=== PATIENT | female | born 1965 | race Caucasian/White ===

== ENCOUNTER 2024-02-27 09:44 | Inpatient (IN) | payer OTHER ==
[~2024-02-27] VITALS: Ht 165.1 cm; Wt 109.8 kg
[~2024-02-27 09:44] MED LIST: NO HOME MEDS; RAMI5CAP71 PO
[2024-02-27 10:12] LABS: BASOPHILS # (AUTO) 0.1 X10'3 (0-0.2); BASOPHILS % (AUTO) 0.5 % (0-1); EOSINOPHILS # (AUTO) 0.1 X10'3 (0-0.9); EOSINOPHILS % (AUTO) 0.3 % (0-6); HEMATOCRIT 32.3 % (35.0-45.0); HEMOGLOBIN 10.1 g/dl (12.0-16.0); LYMPHOCYTES # (AUTO) 3.6 X10'3 (1.1-4.8); LYMPHOCYTES % (AUTO) 18.2 % (21-51); MEAN CORPUSCULAR HEMOGLOBIN 28.5 PG (27.0-31.0); MEAN CORPUSCULAR HGB CONC 31.3 g/dL (33.0-36.5); MEAN CORPUSCULAR VOLUME 91.2 FL (78-98); MEAN PLATELET VOLUME 8.3 FL (7.4-10.4); MONOCYTES # (AUTO) 7.3 X10'3 (0-0.9); MONOCYTES % (AUTO) 36.8 % (2-12); NEUTROPHILS # (AUTO) 8.8 X10'3 (1.8-7.7); NEUTROPHILS % (AUTO) 44.2 % (42-75); PLATELET COUNT 305 X10'3 (140-440); RED BLOOD COUNT 3.54 X10'6 (4.20-5.60); RED CELL DISTRIBUTION WIDTH 21.9 % (11.5-14.5); WHITE BLOOD COUNT 19.9 X10'3 (4.5-11.0)
[2024-02-27 10:30] LABS: TOTAL CELLS COUNTED 100
[2024-02-27 10:31] LABS: ANISOCYTOSIS 3+; PLATELET ESTIMATE NORMAL
[2024-02-27 10:32] LABS: LARGE PLATELETS FEW
[2024-02-27 10:33] LABS: STOMATOCYTES 1+
[2024-02-27] MEDS ORDERED: METO-384 PO (10:34)
[2024-02-27] MEDS ORDERED: ALLO100T PO (10:34)
[2024-02-27] MEDS ORDERED: LISI20TA28 PO (10:34)
[2024-02-27] MEDS ORDERED: ATOR10TA70 PO (10:34)
[2024-02-27] MEDS ORDERED: SYN0.088T PO (10:34)
[2024-02-27] MEDS ORDERED: HYDR12.55 PO (10:34)
[2024-02-27] MEDS: nitroGLYCERIN 1gm ointment UD TP ONE (10:52)
[2024-02-27] MEDS: furosemide 40mg/4ml inj IV ONE (10:52)
[2024-02-27 10:53] LABS: APTT 29 SECONDS (22-32); INR 1.2 INR; PROTHROMBIN TIME 12.2 SECONDS (9.0-12.0)
[2024-02-27 11:10] LABS: ALANINE AMINOTRANSFERASE 12 U/L (12-78); ALBUMIN 3.3 G/DL (3.4-5.0); ALBUMIN/GLOBULIN RATIO 0.6 (1.1-1.5); ALKALINE PHOSPHATASE 97 IU/L (46-116); ANION GAP 11 (8-16); ASPARTATE AMINO TRANSFERASE 12 U/L (10-37); BILIRUBIN,TOTAL 1.3 MG/DL (0.1-1.0); BLOOD UREA NITROGEN 15 MG/DL (7-18); BUN/CREATININE RATIO 16.9 (10.0-20.0); CALCIUM 9.7 MG/DL (8.5-10.1); CHLORIDE 99 MMOL/L (99-107); CREATININE 0.89 MG/DL (0.40-0.90); GLUCOSE 141 MG/DL (70-104); POTASSIUM 3.4 MMOL/L (3.5-5.1); SODIUM 139 MMOL/L (135-145); TOTAL CARBON DIOXIDE 29.5 MMOL/L (24-32); TOTAL PROTEIN 8.7 G/DL (6.4-8.2); eCRCL 62 ML/MIN; eGFR 65 ML/MIN
[2024-02-27 11:32] LABS: PRO BRAIN NATRIURETIC PEPTIDE 876 PG/ML (0-125)
[2024-02-27 11:53] LABS: D-DIMER 3.89 MG/L FEU (0-0.50)
[2024-02-27] MEDS ORDERED: normal saline 1000ml 1,000 ML IV SCH (13:00)
[2024-02-27] MEDS ORDERED: iohexol 350MG/ML 100ml bottle IV ONE (13:07)
[2024-02-27] MEDS: magnesium sulf-water 4G/100mL 100 ML IV ONE (14:25)
[2024-02-27] MEDS ORDERED: ondansetron/PF 4mg/2ml inj IV PRN (15:20)
[2024-02-27] MEDS ORDERED: ipratropium/albuterol 3ml nebule NEB PRN (15:20)
[2024-02-27] MEDS ORDERED: morphine 2 MG/ML inj. syringe IV PRN ×2 (15:20)
[2024-02-27] MEDS ORDERED: bisacodyl 10mg suppository rectal RC PRN (15:20)
[2024-02-27] MEDS ORDERED: HYDROcodone/acetaminophen 10/325mg tab PO PRN (15:20)
[2024-02-27] MEDS ORDERED: magnesium Cl slow-release 64mg tablet PO PRN (15:20)
[2024-02-27] MEDS ORDERED: ondansetron 4mg rapidly disintigrating tab PO PRN (15:20)
[2024-02-27] MEDS ORDERED: potassium Cl 20 mEq SR tablet PO PRN ×2 (15:20)
[2024-02-27] MEDS ORDERED: diphenhydrAMINE 50 mg/ml inj IV PRN (15:20)
[2024-02-27] MEDS ORDERED: HYDROcodone/acetaminophen 5mg/325mg tablet PO PRN (15:20)
[2024-02-27] MEDS ORDERED: mag hydrox/Alum hydrox/simeth 30ml oral suspension PO PRN (15:20)
[2024-02-27] MEDS ORDERED: magnesium hydroxide 30ml (MOM) UD suspension PO PRN (15:20)
[2024-02-27] MEDS: metoprolol tartrate 25mg tablet PO SCH (15:46)
[2024-02-27] MEDS: normal saline 1000ml 1,000 ML IV SCH (15:46)
[2024-02-27 16:14] VITALS: PULSE 108; RESP 32; O2SAT 95
[2024-02-27] MEDS ORDERED: LEVO50CA4 PO (16:36)
[2024-02-27 16:38] LABS: APTT 30 SECONDS (22-32); INR 1.2 INR; PROTHROMBIN TIME 12.3 SECONDS (9.0-12.0)
[2024-02-27 16:39] LABS: HEMOGLOBIN A1C 5.4 % (4.5-6.2)
[2024-02-27 16:50] LABS: C-REACTIVE PROTEIN 14.82 MG/DL (0.0-0.5); CREATINE KINASE 13 U/L (26-192); ETHANOL < 10 MG/DL (<10); LIPASE 37 U/L (16-77); THYROID STIMULATING HORMONE 1.74 ulU/ml (0.34-4.50)
[2024-02-27 16:55] LABS: OSMOLALITY 293 MOSM/K (280-300)
[2024-02-27] MEDS: CefTRIAXone 2gm/D5W 50ml BAG 50 ML IV SCH (17:06)
[2024-02-27] MEDS: potassium bicarbonate/cit acid 25mEq tablet.effervescent PO ONE (17:13)
[2024-02-27 17:18] LABS: HIV ANTIBODY 1&2 RAPID NON-REACTIVE (Neg)
[2024-02-27] MEDS: VANCOMYCIN/WATER FOR INJ (PEG) 1.25GM/250 ML IVPB IV SCH (17:38)
[2024-02-27 17:53] LABS: BILIRUBIN,URINE NEGATIVE (Neg); CLARITY,URINE CLEAR (Clear); COLOR,URINE YELLOW (Yellow); GLUCOSE, URINE NEGATIVE (Neg); KETONES,URINE NEGATIVE (Neg); LEUKOCYTE ESTERASE ,URINE NEGATIVE (Neg); NITRITES, URINE NEGATIVE (Neg); OCCULT BLOOD,URINE NEGATIVE (Neg); PH,URINE 5.5 (4.8-8.0); PROTEIN,URINE NEGATIVE (Neg); UROBILINOGEN,URINE 0.2 E.U/dL (0.2-1.0)
[2024-02-27 17:55] LABS: UA COLLECTION TYPE VOIDED
[2024-02-27 19:30] LABS: URINE AMPHETAMINE SCREEN NEGATIVE (Neg); URINE BARBITUATE SCREEN NEGATIVE (Neg); URINE BENZODIAZEPINES SCREEN NEGATIVE (Neg); URINE CANNABINOID SCREEN NEGATIVE (Neg); URINE COCAINE SCREEN NEGATIVE (Neg); URINE METHADONE SCREEN NEGATIVE (Neg); URINE OPIATE SCREEN NEGATIVE (Neg); URINE PHENCYCLIDINE SCREEN NEGATIVE (Neg)
[2024-02-27] MEDS: docusate sod 100mg capsule PO SCH (20:00)
[2024-02-27] MEDS ORDERED: vancomycin/NS 1 GM ADD-VANTAGE 250 ML IV SCH (20:00)
[2024-02-27] MEDS: K and/or MAG REPLACEMENT MC SCH (20:00)
[2024-02-27 20:08] VITALS: PULSE 93; RESP 23; O2SAT 94
[2024-02-27 21:40] VITALS: BP 141/76; PULSE 102; RESP 21; TEMP 98.9; O2SAT 96
[2024-02-27 21:55] VITALS: O2SAT 97
[2024-02-28] VITALS (19 sets, daily range): BP systolic 119–142; BP diastolic 60–80; PULSE 89–120; RESP 2–43; TEMP 96.8–98.7; O2SAT 90–97
[2024-02-28] MEDS: temazepam 15mg capsule PO PRN (01:02)
[2024-02-28 06:07] LABS: BASOPHILS # (AUTO) 0.1 X10'3 (0-0.2); BASOPHILS % (AUTO) 0.6 % (0-1); EOSINOPHILS # (AUTO) 0.1 X10'3 (0-0.9); EOSINOPHILS % (AUTO) 0.4 % (0-6); HEMATOCRIT 27.7 % (35.0-45.0); HEMOGLOBIN 8.7 g/dl (12.0-16.0); LYMPHOCYTES # (AUTO) 3.6 X10'3 (1.1-4.8); LYMPHOCYTES % (AUTO) 17.3 % (21-51); MEAN CORPUSCULAR HEMOGLOBIN 28.8 PG (27.0-31.0); MEAN CORPUSCULAR HGB CONC 31.4 g/dL (33.0-36.5); MEAN CORPUSCULAR VOLUME 91.6 FL (78-98); MEAN PLATELET VOLUME 7.8 FL (7.4-10.4); MONOCYTES # (AUTO) 9.5 X10'3 (0-0.9); MONOCYTES % (AUTO) 45.4 % (2-12); NEUTROPHILS # (AUTO) 7.6 X10'3 (1.8-7.7); NEUTROPHILS % (AUTO) 36.3 % (42-75); PLATELET COUNT 248 X10'3 (140-440); RED BLOOD COUNT 3.03 X10'6 (4.20-5.60); RED CELL DISTRIBUTION WIDTH 21.9 % (11.5-14.5)
[2024-02-28 06:32] LABS: ALBUMIN 2.8 G/DL (3.4-5.0); ALBUMIN/GLOBULIN RATIO 0.6 (1.1-1.5); ALKALINE PHOSPHATASE 90 IU/L (46-116); ANION GAP 8 (8-16); ASPARTATE AMINO TRANSFERASE 12 U/L (10-37); BILIRUBIN,TOTAL 0.9 MG/DL (0.1-1.0); BLOOD UREA NITROGEN 16 MG/DL (7-18); BUN/CREATININE RATIO 18.6 (10.0-20.0); CALCIUM 9.2 MG/DL (8.5-10.1); CHLORIDE 100 MMOL/L (99-107); CHOL/HDL RATIO 2.9 (0.00-4.99); CHOLESTEROL 89 MG/DL (0-200); CREATININE 0.86 MG/DL (0.40-0.90); GLUCOSE 111 MG/DL (70-104); HDL CHOLESTEROL 31 MG/DL (35-60); LDL CHOLESTEROL 44 MG/DL (50-100); MAGNESIUM 2.1 MG/DL (1.5-2.4); POTASSIUM 3.6 MMOL/L (3.5-5.1); SODIUM 141 MMOL/L (135-145); TOTAL CARBON DIOXIDE 32.6 MMOL/L (24-32); TOTAL PROTEIN 7.8 G/DL (6.4-8.2); TRIGLYCERIDES 70 MG/DL (20-135); eCRCL 64 ML/MIN; eGFR 68 ML/MIN
[2024-02-28 06:59] LABS: ALANINE AMINOTRANSFERASE 12 U/L (12-78)
[2024-02-28 07:11] LABS: GIANT PLATELET FEW; PLATELET ESTIMATE NORMAL; TOTAL CELLS COUNTED 100
[2024-02-28 07:12] LABS: ANISOCYTOSIS 3+
[2024-02-28] MEDS: ipratropium/albuterol 3ml nebule NEB SCH (08:40)
[2024-02-28] MEDS: pantoprazole 40mg Tablet.DR PO SCH (08:50)
[2024-02-28] MEDS: furosemide 40mg/4ml inj IV SCH (10:56)
[2024-02-28] MEDS ORDERED: LORazepam 1 MG tablet PO PRN (12:00)
[2024-02-28] MEDS ORDERED: LORazepam 2 mg/ml vial IV PRN (12:00)
[2024-02-28] MEDS: CefTRIAXone 2gm/D5W 50ml BAG 50 ML IV SCH (17:55)
[2024-02-28] MEDS: guaiFENesin ER 600mg tablet PO SCH (22:15)
[2024-02-29] VITALS (27 sets, daily range): BP systolic 101–143; BP diastolic 50–70; PULSE 76–118; RESP 12–23; TEMP 97.1–98; O2SAT 89–99
[2024-02-29 03:51] LABS: EOSINOPHILS # (AUTO) 0.1 X10'3 (0-0.9); EOSINOPHILS % (AUTO) 0.4 % (0-6); HEMOGLOBIN 8.8 g/dl (12.0-16.0)
[2024-02-29] MEDS: VANCOMYCIN LEVEL IV ONE (03:51)
[2024-02-29 03:53] LABS: BASOPHILS # (AUTO) 0.2 X10'3 (0-0.2); BASOPHILS % (AUTO) 0.9 % (0-1); HEMATOCRIT 27.8 % (35.0-45.0); LYMPHOCYTES # (AUTO) 3.7 X10'3 (1.1-4.8); LYMPHOCYTES % (AUTO) 18.5 % (21-51); MEAN CORPUSCULAR HEMOGLOBIN 28.8 PG (27.0-31.0); MEAN CORPUSCULAR HGB CONC 31.8 g/dL (33.0-36.5); MEAN CORPUSCULAR VOLUME 90.8 FL (78-98); MEAN PLATELET VOLUME 8.2 FL (7.4-10.4); MONOCYTES # (AUTO) 8.8 X10'3 (0-0.9); MONOCYTES % (AUTO) 44.2 % (2-12); NEUTROPHILS # (AUTO) 7.1 X10'3 (1.8-7.7); PLATELET COUNT 271 X10'3 (140-440); RED BLOOD COUNT 3.06 X10'6 (4.20-5.60); RED CELL DISTRIBUTION WIDTH 21.7 % (11.5-14.5); WHITE BLOOD COUNT 19.8 X10'3 (4.5-11.0)
[2024-02-29 04:11] LABS: ALANINE AMINOTRANSFERASE 11 U/L (12-78); ALBUMIN 2.8 G/DL (3.4-5.0); ALBUMIN/GLOBULIN RATIO 0.5 (1.1-1.5); ALKALINE PHOSPHATASE 97 IU/L (46-116); ANION GAP 7 (8-16); ASPARTATE AMINO TRANSFERASE 7 U/L (10-37); BILIRUBIN,TOTAL 1.1 MG/DL (0.1-1.0); BLOOD UREA NITROGEN 18 MG/DL (7-18); BUN/CREATININE RATIO 20.7 (10.0-20.0); CHLORIDE 99 MMOL/L (99-107); CREATININE 0.87 MG/DL (0.40-0.90); GLUCOSE 127 MG/DL (70-104); MAGNESIUM 1.6 MG/DL (1.5-2.4); POTASSIUM 3.3 MMOL/L (3.5-5.1); SODIUM 141 MMOL/L (135-145); TOTAL PROTEIN 8.1 G/DL (6.4-8.2); VANCOMYCIN,TROUGH 17.7 ug/mL (10.0-20.0); eCRCL 63 ML/MIN; eGFR 67 ML/MIN
[2024-02-29 04:36] LABS: TOTAL CELLS COUNTED 100
[2024-02-29] MEDS: atorvastatin 10mg tablet PO SCH (08:00)
[2024-02-29] MEDS: levoTHYROXINE 25mcg tablet PO SCH (08:00)
[2024-02-29] MEDS: allopurinol 100mg tablet PO SCH (08:00)
[2024-02-29] MEDS: multivitamins, therapeutics tablet PO SCH (08:00)
[2024-02-29] MEDS ORDERED: metoprolol succinate 25mg (24-HOUR) SR. Tablet PO SCH (08:00)
[2024-02-29] MEDS: potassium Cl 40MEQ/1/2NS 520ml 520 ML IV PRN (10:06)
[2024-02-29] MEDS ORDERED: NORepinephrine 8mg/ 250ml NS 250 ML IV ONE (12:01)
[2024-02-29] MEDS ORDERED: sevoflurane 250ml liquid IH ONE (12:18)
[2024-02-29] MEDS ORDERED: fentaNYL /PF 50mcg/ml 5ml ampule ONE (12:21)
[2024-02-29] MEDS ORDERED: midazolam 1 mg/ML 2ml injection ONE (12:21)
[2024-02-29] MEDS ORDERED: BUPIVAcaine 2.5mg/ml inj 50ml vial (contains preservative) ONE (13:30)
[2024-02-29] MEDS ORDERED: albumin (Human) 5% 250ml 250 ML IV ONE ×2 (13:31→13:32)
[2024-02-29] MEDS ORDERED: rocuronium 10mg/ml inj IV ONE ×2 (13:32)
[2024-02-29] MEDS ORDERED: etomidate 2mg/ml inj. ONE (13:32)
[2024-02-29] MEDS ORDERED: propofol inj 20 ML IV ONE (13:32)
[2024-02-29] MEDS: BUPIVAcaine 2.5mg/ml inj 50ml vial (contains preservative) SQ ONE (15:11)
[2024-02-29] MEDS ORDERED: sugammadex 200mg/2ml injection IV ONE (15:53)
[2024-02-29] MEDS ORDERED: HYDROcodone/acetaminophen 10/325mg tab PO PRN (16:10)
[2024-02-29] MEDS ORDERED: morphine 4 MG/ML inj SYRINge IV PRN (16:10)
[2024-02-29] MEDS ORDERED: metoclopramide 5 mg/ml inj IV PRN (16:10)
[2024-02-29] MEDS ORDERED: albuterol 2.5 MG/3 ML nebule NEB PRN (16:10)
[2024-02-29] MEDS ORDERED: morphine 2 MG/ML inj. syringe IV PRN (16:10)
[2024-02-29] MEDS ORDERED: ondansetron/PF 4mg/2ml inj IV PRN (16:10)
[2024-02-29] MEDS: FENTANYL-0.9 % NACL/PF 100 ML ONE (16:33)
[2024-02-29] MEDS: propofol 1000mg/100ml bottle 100 ML IV ONE (16:44)
[2024-02-29] MEDS: FENTANYL-0.9 % NACL/PF 100 ML IV SCH (17:16)
[2024-02-29] MEDS: propofol 1000mg/100ml bottle 100 ML IV SCH (17:17)
[2024-02-29 17:29] LABS: ALBUMIN 2.9 G/DL (3.4-5.0); ANION GAP 7 (8-16); BLOOD UREA NITROGEN 19 MG/DL (7-18); BUN/CREATININE RATIO 17.8 (10.0-20.0); CALCIUM 8.1 MG/DL (8.5-10.1); CHLORIDE 102 MMOL/L (99-107); CREATININE 1.07 MG/DL (0.40-0.90); GLUCOSE 179 MG/DL (70-104); POTASSIUM 3.2 MMOL/L (3.5-5.1); SODIUM 142 MMOL/L (135-145); TOTAL CARBON DIOXIDE 33.5 MMOL/L (24-32); eCRCL 52 ML/MIN; eGFR 53 ML/MIN
[2024-02-29 17:46] LABS: BASOPHILS # (AUTO) 0.1 X10'3 (0-0.2); BASOPHILS % (AUTO) 0.5 % (0-1); EOSINOPHILS # (AUTO) 0.1 X10'3 (0-0.9); LYMPHOCYTES # (AUTO) 2.4 X10'3 (1.1-4.8); MEAN CORPUSCULAR VOLUME 90.9 FL (78-98); RED CELL DISTRIBUTION WIDTH 21.4 % (11.5-14.5)
[2024-02-29 17:47] LABS: EOSINOPHILS % (AUTO) 0.4 % (0-6); HEMATOCRIT 24.4 % (35.0-45.0); HEMOGLOBIN 7.9 g/dl (12.0-16.0); LYMPHOCYTES % (AUTO) 14.4 % (21-51); MEAN CORPUSCULAR HEMOGLOBIN 29.6 PG (27.0-31.0); MEAN CORPUSCULAR HGB CONC 32.5 g/dL (33.0-36.5); MEAN PLATELET VOLUME 8.4 FL (7.4-10.4); MONOCYTES # (AUTO) 4.7 X10'3 (0-0.9); MONOCYTES % (AUTO) 29.1 % (2-12); NEUTROPHILS % (AUTO) 55.6 % (42-75); PLATELET COUNT 222 X10'3 (140-440); RED BLOOD COUNT 2.69 X10'6 (4.20-5.60); WHITE BLOOD COUNT 16.3 X10'3 (4.5-11.0)
[2024-02-29 18:53] LABS: MAGNESIUM 1.1 MG/DL (1.5-2.4); PHOSPHORUS 4.5 MG/DL (2.3-4.5)
[2024-02-29] MEDS: albuterol 2.5 MG/3 ML nebule NEB SCH (19:00)
[2024-02-29] MEDS: docusate sod 100mg capsule PO SCH (20:00)
[2024-02-29 21:17] LABS: BILIRUBIN,URINE MODERATE (Neg); CLARITY,URINE TURBID (Clear); COLOR,URINE YELLOW (Yellow); GLUCOSE, URINE NEGATIVE (Neg); KETONES,URINE TRACE mg/dl (Neg); LEUKOCYTE ESTERASE ,URINE NEGATIVE (Neg); OCCULT BLOOD,URINE NEGATIVE (Neg); PH,URINE 5.5 (4.8-8.0); PROTEIN,URINE 30 mg/dl (Neg)
[2024-02-29 21:24] LABS: NITRITES, URINE NEGATIVE (Neg); UA COLLECTION TYPE FOLEY CATH
[2024-02-29 21:33] LABS: AMORPHOUS URATES 3+; RBC,URINE NONE SEEN /HPF (0-2); SQUAMOUS EPITHELIAL CELL,UR MODERATE /LPF (FEW); WBC,URINE 0-4 /HPF (0-4)
[2024-02-29 21:34] LABS: BACTERIA,URINE 2+ /HPF (Neg)
[2024-02-29] MEDS: gabapentin 300mg capsule PO SCH (21:39)
[2024-02-29] MEDS: ipratropium/albuterol 3ml nebule NEB SCH (23:30)
[2024-03-01] VITALS (45 sets, daily range): BP systolic 84–127; BP diastolic 37–62; PULSE 68–98; RESP 12–27; O2SAT 87–100
[2024-03-01] MEDS ORDERED: ceFAZolin/D5W- 1GM premix 50 ML IV SCH
[2024-03-01 02:59] LABS: BASOPHILS # (AUTO) 0.1 X10'3 (0-0.2); BASOPHILS % (AUTO) 0.3 % (0-1); HEMOGLOBIN 7.5 g/dl (12.0-16.0); MEAN PLATELET VOLUME 8.6 FL (7.4-10.4); WHITE BLOOD COUNT 17.9 X10'3 (4.5-11.0)
[2024-03-01 03:01] LABS: EOSINOPHILS % (AUTO) 0 % (0-6); HEMATOCRIT 23.4 % (35.0-45.0); LYMPHOCYTES # (AUTO) 1.6 X10'3 (1.1-4.8); LYMPHOCYTES % (AUTO) 8.8 % (21-51); MEAN CORPUSCULAR HEMOGLOBIN 28.9 PG (27.0-31.0); MEAN CORPUSCULAR VOLUME 90.3 FL (78-98); MONOCYTES # (AUTO) 6.4 X10'3 (0-0.9); MONOCYTES % (AUTO) 35.8 % (2-12); NEUTROPHILS # (AUTO) 9.9 X10'3 (1.8-7.7); NEUTROPHILS % (AUTO) 55.1 % (42-75); PLATELET COUNT 209 X10'3 (140-440); RED BLOOD COUNT 2.59 X10'6 (4.20-5.60); RED CELL DISTRIBUTION WIDTH 21.3 % (11.5-14.5)
[2024-03-01 03:26] LABS: ALANINE AMINOTRANSFERASE 7 U/L (12-78); ALBUMIN 2.7 G/DL (3.4-5.0); ALBUMIN/GLOBULIN RATIO 0.6 (1.1-1.5); ALKALINE PHOSPHATASE 71 IU/L (46-116); ANION GAP 7 (8-16); ASPARTATE AMINO TRANSFERASE 12 U/L (10-37); BILIRUBIN,TOTAL 0.8 MG/DL (0.1-1.0); BLOOD UREA NITROGEN 19 MG/DL (7-18); BUN/CREATININE RATIO 19.2 (10.0-20.0); CALCIUM 7.9 MG/DL (8.5-10.1); CHLORIDE 102 MMOL/L (99-107); CREATININE 0.99 MG/DL (0.40-0.90); GLUCOSE 156 MG/DL (70-104); MAGNESIUM 1.2 MG/DL (1.5-2.4); POTASSIUM 3.9 MMOL/L (3.5-5.1); SODIUM 141 MMOL/L (135-145); TOTAL CARBON DIOXIDE 32.4 MMOL/L (24-32); TOTAL PROTEIN 7.1 G/DL (6.4-8.2); TRIGLYCERIDES 103 MG/DL (20-135); eCRCL 56 ML/MIN; eGFR 58 ML/MIN
[2024-03-01 03:41] LABS: ABG BASE EXCESS 5.7 mmol/L (-2.0-3.0); ABG HCO3 29.8 mmol/L (21.0-28.0); ABG OXYGEN SATURATION 94.5 % (94.0-98.0); ABG PH (T) 7.462 (7.350-7.450); ABG PO2 (T) 76.1 mmHg (83.0-108.0); FHHb 5.4 % (0.0-5.0); FMetHb 0.3 % (0.0-1.5); FO2Hb 93.3 % (94.0-98.0); MODE SIMV; PATIENT TEMPERATURE 37.9; PEEP 5 cm H2O; RESPIRATORY RATE 12 b/min; TIDAL VOLUME 600 mL; TOTAL HEMOGLOBIN 7.9 G/dl (12.0-16.0)
[2024-03-01 03:45] LABS: TOTAL CELLS COUNTED 100
[2024-03-01] MEDS: magnesium sulf-water 4G/100mL 100 ML IV PRN (03:59)
[2024-03-01] MEDS: dexmedetomidin/NS 400mcg/100ml 100 ML IV PRN (04:21)
[2024-03-01 05:47] LABS: BFAPPEAR BLOODY; BFSOURCE PLEURAL FLD
[2024-03-01 05:48] LABS: BF RBC COUNT 39625 /CU MM; BF WBC COUNT 1563 /CU MM (0-1000); BFCOLOR RED; BFVOLUME 6 ML
[2024-03-01 06:01] LABS: LYMPHOCYTES,BODY FLUID 21 %; MONOCYTES,BODY FLUID 11 %; NEUTROPHILS,BODY FLUID 68 %
[2024-03-01 06:06] LABS: GLUCOSE,BODY FLUID 101 MG/DL; TOTAL PROTEIN,BODY FLUID 5.9 G/DL
[2024-03-01 06:12] LABS: LDH,BODY FLUID 1911 U/L
[2024-03-01] MEDS: magnesium sulf-water 2g/50mL 50 ML IV PRN (09:20)
[2024-03-01 12:33] LABS: LACTATE DEHYDROGENASE 259 U/L (81-234)
[2024-03-01] MEDS: albumin (Human) 5% 250ml 250 ML IV ONE ×3 (12:37→19:06)
[2024-03-01 15:03] LABS: ABG BASE EXCESS 6.3 mmol/L (-2.0-3.0); ABG HCO3 32.2 mmol/L (21.0-28.0); ABG OXYGEN SATURATION 95.2 % (94.0-98.0); ABG PCO2 (T) 55.3 mmHg (32.0-45.0); ABG PH (T) 7.385 (7.350-7.450); ABG PO2 (T) 82.3 mmHg (83.0-108.0); FCOHb 1.2 % (0.5-1.5); FHHb 4.7 % (0.0-5.0); FMetHb 0.3 % (0.0-1.5); FO2Hb 93.8 % (94.0-98.0); MODE VENT - SIMV; PATIENT TEMPERATURE 37.3; RESPIRATORY RATE 12 b/min; TIDAL VOLUME 600 mL; TOTAL HEMOGLOBIN 8.9 G/dl (12.0-16.0)
[2024-03-01] MEDS: acetaminophen 325mg tablet PO PRN (16:45)
[2024-03-01] MEDS: mineral oil/petrolatum ophthal oint EACHEYE SCH (20:00)
[2024-03-02] VITALS (49 sets, daily range): BP systolic 81–146; BP diastolic 39–71; PULSE 80–122; RESP 12–43; TEMP 99.3–99.7; O2SAT 92–98
[2024-03-02 00:10] LABS: ALBUMIN 2.7 G/DL (3.4-5.0); ANION GAP 11 (8-16); BLOOD UREA NITROGEN 21 MG/DL (7-18); CALCIUM 7.7 MG/DL (8.5-10.1); CHLORIDE 104 MMOL/L (99-107); GLUCOSE 109 MG/DL (70-104); POTASSIUM 3.1 MMOL/L (3.5-5.1); SODIUM 144 MMOL/L (135-145); TOTAL CARBON DIOXIDE 28.8 MMOL/L (24-32); eCRCL 55 ML/MIN; eGFR 57 ML/MIN
[2024-03-02] MEDS: piperacillin/tazo 3.375gm/50ml 50 ML IV SCH (01:30)
[2024-03-02 02:34] LABS: BASOPHILS % (AUTO) 0.4 % (0-1); EOSINOPHILS # (AUTO) 0.1 X10'3 (0-0.9); EOSINOPHILS % (AUTO) 0.5 % (0-6); LYMPHOCYTES # (AUTO) 2.5 X10'3 (1.1-4.8); MEAN CORPUSCULAR HGB CONC 31.7 g/dL (33.0-36.5); MEAN CORPUSCULAR VOLUME 90.8 FL (78-98); NEUTROPHILS # (AUTO) 5.9 X10'3 (1.8-7.7); RED CELL DISTRIBUTION WIDTH 21.6 % (11.5-14.5)
[2024-03-02 02:35] LABS: LYMPHOCYTES % (AUTO) 19.1 % (21-51); MEAN CORPUSCULAR HEMOGLOBIN 28.8 PG (27.0-31.0); MONOCYTES # (AUTO) 4.7 X10'3 (0-0.9); MONOCYTES % (AUTO) 35.6 % (2-12); NEUTROPHILS % (AUTO) 44.4 % (42-75); PLATELET COUNT 218 X10'3 (140-440); WHITE BLOOD COUNT 13.2 X10'3 (4.5-11.0)
[2024-03-02 02:42] LABS: HEMATOCRIT 20.8 % (35.0-45.0); HEMOGLOBIN 6.6 g/dl (12.0-16.0)
[2024-03-02 02:49] LABS: ALANINE AMINOTRANSFERASE 10 U/L (12-78); ALBUMIN 2.6 G/DL (3.4-5.0); ALBUMIN/GLOBULIN RATIO 0.6 (1.1-1.5); ALKALINE PHOSPHATASE 71 IU/L (46-116); ANION GAP 12 (8-16); ASPARTATE AMINO TRANSFERASE 10 U/L (10-37); BILIRUBIN,TOTAL 0.9 MG/DL (0.1-1.0); BLOOD UREA NITROGEN 21 MG/DL (7-18); BUN/CREATININE RATIO 22.6 (10.0-20.0); CALCIUM 8.1 MG/DL (8.5-10.1); CHLORIDE 103 MMOL/L (99-107); CREATININE 0.93 MG/DL (0.40-0.90); GLUCOSE 117 MG/DL (70-104); MAGNESIUM 2.4 MG/DL (1.5-2.4); SODIUM 143 MMOL/L (135-145); TOTAL CARBON DIOXIDE 27.9 MMOL/L (24-32); TOTAL PROTEIN 6.9 G/DL (6.4-8.2); eCRCL 59 ML/MIN; eGFR 62 ML/MIN
[2024-03-02 03:04] LABS: TOTAL CELLS COUNTED 100
[2024-03-02] MEDS ORDERED: magnesium sulf-water 4G/100mL 100 ML IV PRN (03:15)
[2024-03-02] MEDS ORDERED: magnesium sulf-water 2g/50mL 50 ML IV PRN (03:15)
[2024-03-02] MEDS ORDERED: magnesium Cl slow-release 64mg tablet PO PRN (03:15)
[2024-03-02] MEDS ORDERED: potassium Cl 20 mEq SR tablet PO PRN ×2 (03:15)
[2024-03-02 03:47] LABS: ABG BASE EXCESS 2.3 mmol/L (-2.0-3.0); ABG HCO3 25.7 mmol/L (21.0-28.0); ABG OXYGEN SATURATION 96.6 % (94.0-98.0); ABG PCO2 (T) 35.6 mmHg (32.0-45.0); ABG PH (T) 7.479 (7.350-7.450); ABG PO2 (T) 91.5 mmHg (83.0-108.0); FCOHb 0.7 % (0.5-1.5); FHHb 3.4 % (0.0-5.0); FMetHb 0.1 % (0.0-1.5); FO2Hb 95.8 % (94.0-98.0); MODE CMV PRVC; PATIENT TEMPERATURE 37.8; PEEP 5 cm H2O; RESPIRATORY RATE 12 b/min; TIDAL VOLUME 600 mL
[2024-03-02] MEDS: potassium Cl 40MEQ/1/2NS 520ml 520 ML IV PRN (04:09)
[2024-03-02] MEDS: metoprolol tartrate 50mg tablet PO SCH (13:36)
[2024-03-02] MEDS: ALPRAZolam 0.5mg tablet PO PRN (17:20)
[2024-03-02] MEDS: acetaminophen 325mg tablet PO PRN (17:45)
[2024-03-02] MEDS: lactose-reduced food (Ensure Enlive) - 237ml bottle PO SCH (18:00)
[2024-03-02] MEDS: JUVEN Shake w/Arg/Glut/Ca2+Bmb (Juven 19.3gm) pkt 240ml PO SCH (18:00)
[2024-03-03] VITALS (40 sets, daily range): BP systolic 88–155; BP diastolic 45–93; PULSE 82–116; RESP 15–33; O2SAT 91–100
[2024-03-03] MEDS: albumin (Human) 5% 250ml 250 ML IV ONE (01:02)
[2024-03-03 04:25] LABS: ABG BASE EXCESS 2.7 mmol/L (-2.0-3.0); ABG HCO3 27.8 mmol/L (21.0-28.0); ABG OXYGEN SATURATION 95.6 % (94.0-98.0); ABG PH (T) 7.401 (7.350-7.450); ABG PO2 (T) 79.9 mmHg (83.0-108.0); ALLEN'S TEST POSITIVE; FCOHb 1.3 % (0.5-1.5); FHHb 4.3 % (0.0-5.0); FMetHb 0.3 % (0.0-1.5); FO2Hb 94.1 % (94.0-98.0); MODE MASK - BIPAP; PATIENT TEMPERATURE 37.3; RESPIRATORY RATE 12 b/min; TOTAL HEMOGLOBIN 8.8 G/dl (12.0-16.0)
[2024-03-03 06:10] LABS: BASOPHILS # (AUTO) 0.1 X10'3 (0-0.2); EOSINOPHILS # (AUTO) 0.1 X10'3 (0-0.9); EOSINOPHILS % (AUTO) 0.9 % (0-6); MEAN PLATELET VOLUME 9.3 FL (7.4-10.4); MONOCYTES % (AUTO) 36.7 % (2-12)
[2024-03-03 06:12] LABS: BASOPHILS % (AUTO) 0.6 % (0-1); HEMATOCRIT 25.7 % (35.0-45.0); HEMOGLOBIN 8.1 g/dl (12.0-16.0); LYMPHOCYTES # (AUTO) 3.1 X10'3 (1.1-4.8); LYMPHOCYTES % (AUTO) 19.1 % (21-51); MEAN CORPUSCULAR HEMOGLOBIN 28.5 PG (27.0-31.0); MEAN CORPUSCULAR HGB CONC 31.4 g/dL (33.0-36.5); MEAN CORPUSCULAR VOLUME 90.9 FL (78-98); NEUTROPHILS % (AUTO) 42.7 % (42-75); PLATELET COUNT 239 X10'3 (140-440); RED BLOOD COUNT 2.83 X10'6 (4.20-5.60); RED CELL DISTRIBUTION WIDTH 20.9 % (11.5-14.5); WHITE BLOOD COUNT 16.4 X10'3 (4.5-11.0)
[2024-03-03 06:35] LABS: ALANINE AMINOTRANSFERASE 35 U/L (12-78); ALBUMIN 2.5 G/DL (3.4-5.0); ALBUMIN/GLOBULIN RATIO 0.6 (1.1-1.5); ALKALINE PHOSPHATASE 150 IU/L (46-116); ANION GAP 11 (8-16); ASPARTATE AMINO TRANSFERASE 39 U/L (10-37); BILIRUBIN,TOTAL 1.4 MG/DL (0.1-1.0); BLOOD UREA NITROGEN 29 MG/DL (7-18); BUN/CREATININE RATIO 23.6 (10.0-20.0); CALCIUM 8.6 MG/DL (8.5-10.1); CHLORIDE 104 MMOL/L (99-107); CREATININE 1.23 MG/DL (0.40-0.90); GLUCOSE 103 MG/DL (70-104); POTASSIUM 3.5 MMOL/L (3.5-5.1); SODIUM 143 MMOL/L (135-145); TOTAL CARBON DIOXIDE 27.6 MMOL/L (24-32); TOTAL PROTEIN 6.8 G/DL (6.4-8.2); eCRCL 45 ML/MIN; eGFR 45 ML/MIN
[2024-03-03 07:12] LABS: TOTAL CELLS COUNTED 100
[2024-03-03 07:13] LABS: ANISOCYTOSIS 3+; PLATELET ESTIMATE NORMAL; POLYCHROMASIA FEW
[2024-03-03] MEDS: methylPREDNISolone sod succ/PF 40mg inj. IV SCH (07:31)
[2024-03-03] MEDS: thiamine 100mg tablet PO SCH (08:27)
[2024-03-03] MEDS: HYDROcodone/acetaminophen 10/325mg tab PO PRN (08:27)
[2024-03-03 17:10] LABS: ANION GAP 13 (8-16); BLOOD UREA NITROGEN 33 MG/DL (7-18); CHLORIDE 100 MMOL/L (99-107); GLUCOSE 244 MG/DL (70-104); POTASSIUM 4.7 MMOL/L (3.5-5.1); SODIUM 137 MMOL/L (135-145); TOTAL CARBON DIOXIDE 24.3 MMOL/L (24-32); eCRCL 50 ML/MIN; eGFR 51 ML/MIN
[2024-03-03] MEDS: diphenhydrAMINE 25mg capsule PO PRN (23:12)
[2024-03-04] VITALS (40 sets, daily range): BP systolic 117–163; BP diastolic 66–92; PULSE 82–108; RESP 14–24; O2SAT 90–95
[2024-03-04 02:46] LABS: BASOPHILS # (AUTO) 0.1 X10'3 (0-0.2); BASOPHILS % (AUTO) 0.3 % (0-1); EOSINOPHILS # (AUTO) 0.1 X10'3 (0-0.9); EOSINOPHILS % (AUTO) 0.2 % (0-6); HEMATOCRIT 29.9 % (35.0-45.0); HEMOGLOBIN 9.2 g/dl (12.0-16.0); LYMPHOCYTES # (AUTO) 3.2 X10'3 (1.1-4.8); LYMPHOCYTES % (AUTO) 11.2 % (21-51); MEAN CORPUSCULAR HEMOGLOBIN 27.6 PG (27.0-31.0); MEAN CORPUSCULAR HGB CONC 30.7 g/dL (33.0-36.5); MEAN PLATELET VOLUME 9.4 FL (7.4-10.4); MONOCYTES # (AUTO) 4.3 X10'3 (0-0.9); MONOCYTES % (AUTO) 15.2 % (2-12); NEUTROPHILS # (AUTO) 20.6 X10'3 (1.8-7.7); NEUTROPHILS % (AUTO) 73.1 % (42-75); PLATELET COUNT 328 X10'3 (140-440); RED BLOOD COUNT 3.32 X10'6 (4.20-5.60); RED CELL DISTRIBUTION WIDTH 21.1 % (11.5-14.5)
[2024-03-04 02:50] LABS: WHITE BLOOD COUNT 28.1 X10'3 (4.5-11.0)
[2024-03-04 03:06] LABS: ALANINE AMINOTRANSFERASE 40 U/L (12-78); ALBUMIN 2.7 G/DL (3.4-5.0); ALBUMIN/GLOBULIN RATIO 0.5 (1.1-1.5); ALKALINE PHOSPHATASE 161 IU/L (46-116); ANION GAP 10 (8-16); ASPARTATE AMINO TRANSFERASE 31 U/L (10-37); BILIRUBIN,TOTAL 0.9 MG/DL (0.1-1.0); BLOOD UREA NITROGEN 35 MG/DL (7-18); BUN/CREATININE RATIO 33.3 (10.0-20.0); CALCIUM 8.8 MG/DL (8.5-10.1); CHLORIDE 100 MMOL/L (99-107); CREATININE 1.05 MG/DL (0.40-0.90); GLUCOSE 203 MG/DL (70-104); MAGNESIUM 1.6 MG/DL (1.5-2.4); PHOSPHORUS 2.7 MG/DL (2.3-4.5); POTASSIUM 3.9 MMOL/L (3.5-5.1); SODIUM 141 MMOL/L (135-145); TOTAL CARBON DIOXIDE 31.2 MMOL/L (24-32); TOTAL PROTEIN 7.8 G/DL (6.4-8.2); eCRCL 53 ML/MIN; eGFR 54 ML/MIN
[2024-03-04 03:29] LABS: BANDS% (MANUAL) 2 % (0-10); LYMPHOCYTES % (MANUAL) 19 % (21-51); METAMYLEOCYTES% (MANUAL) 4 % (0-0); MONOCYTES % (MANUAL) 15 % (2-12); MYELOCYTES % (MANUAL) 2 % (0-0); NEUTROPHILS % (MANUAL) 58 % (42-75); PLATELET ESTIMATE NORMAL; TOTAL CELLS COUNTED 100
[2024-03-04 03:30] LABS: ANISOCYTOSIS 1+; STOMATOCYTES 1+
[2024-03-04] MEDS: folic acid 1mg tablet PO SCH (07:16)
[2024-03-04 12:43] LABS: ALBUMIN 2.8 G/DL (3.4-5.0); ANION GAP 11 (8-16); BLOOD UREA NITROGEN 38 MG/DL (7-18); CALCIUM 9.1 MG/DL (8.5-10.1); CHLORIDE 100 MMOL/L (99-107); CREATININE 1.15 MG/DL (0.40-0.90); GLUCOSE 261 MG/DL (70-104); POTASSIUM 3.7 MMOL/L (3.5-5.1); SODIUM 142 MMOL/L (135-145); TOTAL CARBON DIOXIDE 31.3 MMOL/L (24-32); eCRCL 48 ML/MIN; eGFR 48 ML/MIN
[2024-03-04] MEDS: JUVEN Shake w/Arg/Glut/Ca2+Bmb (Juven 19.3gm) pkt 240ml PO SCH (15:20)
[2024-03-05] VITALS (34 sets, daily range): BP systolic 66–163; BP diastolic 66–94; PULSE 68–97; RESP 12–29; O2SAT 91–97
[2024-03-05 06:04] LABS: BASOPHILS # (AUTO) 0.1 X10'3 (0-0.2); BASOPHILS % (AUTO) 0.3 % (0-1); EOSINOPHILS % (AUTO) 0.1 % (0-6); HEMATOCRIT 28.8 % (35.0-45.0); HEMOGLOBIN 8.9 g/dl (12.0-16.0); LYMPHOCYTES # (AUTO) 4.1 X10'3 (1.1-4.8); MEAN CORPUSCULAR HEMOGLOBIN 27.9 PG (27.0-31.0); MEAN CORPUSCULAR HGB CONC 30.8 g/dL (33.0-36.5); MEAN CORPUSCULAR VOLUME 90.6 FL (78-98); MEAN PLATELET VOLUME 9.8 FL (7.4-10.4); MONOCYTES # (AUTO) 3.7 X10'3 (0-0.9); MONOCYTES % (AUTO) 9.9 % (2-12); NEUTROPHILS # (AUTO) 29.5 X10'3 (1.8-7.7); NEUTROPHILS % (AUTO) 78.7 % (42-75); PLATELET COUNT 350 X10'3 (140-440); RED BLOOD COUNT 3.18 X10'6 (4.20-5.60); RED CELL DISTRIBUTION WIDTH 20.5 % (11.5-14.5)
[2024-03-05 06:10] LABS: WHITE BLOOD COUNT 37.4 X10'3 (4.5-11.0)
[2024-03-05 06:28] LABS: ALANINE AMINOTRANSFERASE 38 U/L (12-78); ALBUMIN 2.7 G/DL (3.4-5.0); ALBUMIN/GLOBULIN RATIO 0.6 (1.1-1.5); ALKALINE PHOSPHATASE 142 IU/L (46-116); ANION GAP 6 (8-16); ASPARTATE AMINO TRANSFERASE 24 U/L (10-37); BILIRUBIN,TOTAL 0.6 MG/DL (0.1-1.0); BLOOD UREA NITROGEN 48 MG/DL (7-18); BUN/CREATININE RATIO 42.1 (10.0-20.0); CALCIUM 9.2 MG/DL (8.5-10.1); CHLORIDE 103 MMOL/L (99-107); CREATININE 1.14 MG/DL (0.40-0.90); GLUCOSE 187 MG/DL (70-104); MAGNESIUM 1.6 MG/DL (1.5-2.4); POTASSIUM 3.8 MMOL/L (3.5-5.1); SODIUM 146 MMOL/L (135-145); TOTAL CARBON DIOXIDE 36.8 MMOL/L (24-32); TOTAL PROTEIN 7.6 G/DL (6.4-8.2); eCRCL 48 ML/MIN; eGFR 49 ML/MIN
[2024-03-05 07:42] LABS: TOTAL CELLS COUNTED 100
[2024-03-05 07:43] LABS: ANISOCYTOSIS 3+; PLATELET ESTIMATE NORMAL
[2024-03-05] MEDS: heparin, porcine 5000 units/ml vial SQ STA (08:32)
[2024-03-05] MEDS: methylPREDNISolone sod succ/PF 40mg inj. IV SCH (19:37)
[2024-03-05] MEDS: heparin, porcine 5000 units/ml vial SQ SCH (19:37)
[2024-03-06] VITALS (26 sets, daily range): BP systolic 115–159; BP diastolic 54–90; PULSE 64–95; RESP 10–18; TEMP 97–98.7; O2SAT 89–97
[2024-03-06 04:38] LABS: EOSINOPHILS % (AUTO) 0 % (0-6); HEMOGLOBIN 9.1 g/dl (12.0-16.0)
[2024-03-06 04:41] LABS: BASOPHILS # (AUTO) 0.1 X10'3 (0-0.2); BASOPHILS % (AUTO) 0.3 % (0-1); LYMPHOCYTES % (AUTO) 11.7 % (21-51); MEAN CORPUSCULAR HEMOGLOBIN 28.1 PG (27.0-31.0); MEAN CORPUSCULAR HGB CONC 31.3 g/dL (33.0-36.5); MEAN CORPUSCULAR VOLUME 89.7 FL (78-98); MEAN PLATELET VOLUME 9.3 FL (7.4-10.4); MONOCYTES # (AUTO) 5.5 X10'3 (0-0.9); MONOCYTES % (AUTO) 12.8 % (2-12); NEUTROPHILS # (AUTO) 32.6 X10'3 (1.8-7.7); NEUTROPHILS % (AUTO) 75.2 % (42-75); PLATELET COUNT 364 X10'3 (140-440); RED BLOOD COUNT 3.24 X10'6 (4.20-5.60); RED CELL DISTRIBUTION WIDTH 20.3 % (11.5-14.5)
[2024-03-06 04:44] LABS: WHITE BLOOD COUNT 43.3 X10'3 (4.5-11.0)
[2024-03-06 05:00] LABS: ALANINE AMINOTRANSFERASE 47 U/L (12-78); ALBUMIN 2.8 G/DL (3.4-5.0); ALBUMIN/GLOBULIN RATIO 0.6 (1.1-1.5); ALKALINE PHOSPHATASE 132 IU/L (46-116); ANION GAP 12 (8-16); ASPARTATE AMINO TRANSFERASE 29 U/L (10-37); BILIRUBIN,TOTAL 0.6 MG/DL (0.1-1.0); BLOOD UREA NITROGEN 55 MG/DL (7-18); CALCIUM 9.7 MG/DL (8.5-10.1); CHLORIDE 102 MMOL/L (99-107); CREATININE 1.31 MG/DL (0.40-0.90); GLUCOSE 147 MG/DL (70-104); MAGNESIUM 1.6 MG/DL (1.5-2.4); POTASSIUM 3.8 MMOL/L (3.5-5.1); SODIUM 148 MMOL/L (135-145); TOTAL CARBON DIOXIDE 34.5 MMOL/L (24-32); TOTAL PROTEIN 7.5 G/DL (6.4-8.2); eCRCL 42 ML/MIN; eGFR 42 ML/MIN
[2024-03-06 05:02] LABS: NUCLEATED RED BLOOD CELLS 1 /100WBC (0-0); TOTAL CELLS COUNTED 100
[2024-03-07] VITALS (8 sets, daily range): BP systolic 139–155; BP diastolic 79–86; PULSE 72–78; RESP 14–22; TEMP 97.3–98.7; O2SAT 93–98
[2024-03-07] MEDS: furosemide 40mg/4ml inj IV SCH (08:04)
== END 2024-03-07 17:30 | disposition home or self-care (01) | DRG 853 ==
LOC: ER 09:45 → ED HOLD 15:32 → PCU 3S 21:39 → CICU 2S 02-29 16:04 → PCU 3S 03-06 14:59
PROVIDERS: ADMIT Family Medicine; ATTEND Family Medicine
PROC: B32T1ZZ Computerized Tomography (CT Scan) of Left Pulmonary Artery using Low Osmolar Contrast (ICD-10-PCS; 2024-02-27)
PROC: B3201ZZ Computerized Tomography (CT Scan) of Thoracic Aorta using Low Osmolar Contrast (ICD-10-PCS; 2024-02-27)
PROC: B32S1ZZ Computerized Tomography (CT Scan) of Right Pulmonary Artery using Low Osmolar Contrast (ICD-10-PCS; 2024-02-27)
PROC: BW211ZZ Computerized Tomography (CT Scan) of Abdomen and Pelvis using Low Osmolar Contrast (ICD-10-PCS; 2024-02-27)
PROC: 0BND4ZZ Release Right Middle Lung Lobe, Percutaneous Endoscopic Approach (ICD-10-PCS; 2024-02-29)
PROC: 0W9D00Z Drainage of Pericardial Cavity with Drainage Device, Open Approach (ICD-10-PCS; 2024-02-29)
PROC: 0BH17EZ Insertion of Endotracheal Airway into Trachea, Via Natural or Artificial Opening (ICD-10-PCS; 2024-02-29)
PROC: 5A1945Z Respiratory Ventilation, 24-96 Consecutive Hours (ICD-10-PCS; 2024-02-29)
PROC: 0W993ZZ Drainage of Right Pleural Cavity, Percutaneous Approach (ICD-10-PCS; 2024-02-29)
PROC: 0BNF4ZZ Release Right Lower Lung Lobe, Percutaneous Endoscopic Approach (ICD-10-PCS; principal; 2024-02-29 12:18)
PROC: 5A0935A Assistance with Respiratory Ventilation, Less than 24 Consecutive Hours, High Flow/Velocity Cannula (ICD-10-PCS; 2024-03-02)
PROC: 5A09357 Assistance with Respiratory Ventilation, Less than 24 Consecutive Hours, Continuous Positive Airway Pressure (ICD-10-PCS; 2024-03-02)
PROC: 30233N1 Transfusion of Nonautologous Red Blood Cells into Peripheral Vein, Percutaneous Approach (ICD-10-PCS; 2024-03-02)
PROC: 5A0935A Assistance with Respiratory Ventilation, Less than 24 Consecutive Hours, High Flow/Velocity Cannula (ICD-10-PCS; 2024-03-03)
PROC: 5A09357 Assistance with Respiratory Ventilation, Less than 24 Consecutive Hours, Continuous Positive Airway Pressure (ICD-10-PCS; 2024-03-03)
PROC: 5A0935A Assistance with Respiratory Ventilation, Less than 24 Consecutive Hours, High Flow/Velocity Cannula (ICD-10-PCS; 2024-03-04)
PROC: 5A09357 Assistance with Respiratory Ventilation, Less than 24 Consecutive Hours, Continuous Positive Airway Pressure (ICD-10-PCS; 2024-03-04)
PROC: 5A0935A Assistance with Respiratory Ventilation, Less than 24 Consecutive Hours, High Flow/Velocity Cannula (ICD-10-PCS; 2024-03-05)
PROC: 5A09357 Assistance with Respiratory Ventilation, Less than 24 Consecutive Hours, Continuous Positive Airway Pressure (ICD-10-PCS; 2024-03-05)
DX: A41.9 Sepsis, unspecified organism (principal); I50.33 Acute on chronic diastolic (congestive) heart failure; J18.9 Pneumonia, unspecified organism; J96.01 Acute respiratory failure with hypoxia; I31.39 Other pericardial effusion (noninflammatory); N17.9 Acute kidney failure, unspecified; Z20.822 Contact with and (suspected) exposure to COVID-19; I11.0 Hypertensive heart disease with heart failure; E66.01 Morbid (severe) obesity due to excess calories; E87.6 Hypokalemia; E78.5 Hyperlipidemia, unspecified; E83.42 Hypomagnesemia; E03.9 Hypothyroidism, unspecified; I27.20 Pulmonary hypertension, unspecified; D64.9 Anemia, unspecified; R16.2 Hepatomegaly with splenomegaly, not elsewhere classified; D50.8 Other iron deficiency anemias; R59.0 Localized enlarged lymph nodes; Z68.39 Body mass index [BMI] 39.0-39.9, adult
CPT/HCPCS: 36415; 36430; 36600; 71045; 71275; 74176; 80048; 80053; 80061; 80202; 80305; 80320; 81001; 81003; 82330; 82550; 82803; 82945; 82948; 83036; 83605; 83615; 83690; 83735; 83880; 83930; 84100; 84145; 84157; 84443; 84478; 84484; 85007; 85018; 85025; 85379; 85610; 85651; 85730; 86038; 86140; 86703; 86885; 86900; 86901; 86920; 87040; 87070; 87075; 87081; 87102; 87502; 87503; 87811; 89051; 92508; 92616; 93005; 93306; 93312; 93325; 94002; 94003; 94640; 94660; 94664; 94668; 94760; 97034; 97116; 97161; 99291; A4215; A4615; A4618; A6213; A6222; A6258; A6449; A7000; A7048; C1758; G0378; J0696; J1100; J1644; J1940; J2250; J2543; J2704; J2919; J3010; J3372; J3475; J3480; J3490; J7030; J7040; J7120; P9016; P9045; Q0163; Q9967

== ENCOUNTER 2024-03-30 12:41 | Outpatient (CLI) | payer OTHER ==
[~2024-03-30 12:41] MED LIST changes: +ALLO100T PO; +ATOR10TA70 PO; +HYDR12.55 PO; +LEVO50CA4 PO; +LISI20TA28 PO; +METO-384 PO; -NO HOME MEDS; -RAMI5CAP71 PO
== END 2024-03-30 23:59 | disposition home or self-care (01) ==
LOC: RAD 12:41
PROVIDERS: ATTEND Surgery
DX: J90 Pleural effusion, not elsewhere classified (principal); E04.1 Nontoxic single thyroid nodule; R16.1 Splenomegaly, not elsewhere classified; I51.7 Cardiomegaly
CPT/HCPCS: 71250

== ENCOUNTER 2024-10-10 08:32 | Outpatient (CLI) | payer OTHER ==
[~2024-10-10] VITALS: Ht 163.8 cm; Wt 105.2 kg
[~2024-10-10 08:32] MED LIST changes: -LEVO50CA4 PO; +LEVO50CA5 PO
[2024-10-10] MEDS: albuterol 2.5 MG/3 ML nebule NEB ONE (09:37)
[2024-10-10 09:39] VITALS: PULSE 80; RESP 16; O2SAT 92
[2024-10-10 09:52] VITALS: PULSE 75; RESP 18
--- NOTE | 2024-10-10 16:42 | PROCEDURE NOTE - Respiratory ---
Procedure Note-Respiratory Providers to CC Copies To 1: AAKASH BARRON MD Procedure Name: This is a spirometry study dated October 10 2024. The spirometry study was performed both before and after inhaled bronchodilator. Spirometry measurements: There is severe reduction in both the forced vital capacity and the FEV1. The FEV1 ratio remains normal. All of the measured flow rates are decreased. After inhaled bronchodilator there is significant improvement in the FEV1 and some of the flow rate measurements. Conclusion: This study is abnormal. There is evidence for significant obstructive ventilatory defect. The obstructive airway process is partially reversible with inhaled bronchodilator. Regular daily use of bronchodilator medication may help this patient clinically. In addition there is evidence for a restrictive ventilatory defect, based on the significant reduction in the forced vital capacity. Interstitial lung disease, pleural disease, or diseases involving the chest wall and/or diaphragm may result in a restrictive ventilatory defect. Clinical correlation is suggested. The patient's obesity may contribute slightly to the restrictive pulmonary process. Close pulmonary follow-up is recommended for this patient. We have no previous studies for comparison. ALEXANDRIA MONTIEL MD Oct 10, 2024 16:42
== END 2024-10-10 23:59 | disposition home or self-care (01) ==
LOC: RT 08:32
PROVIDERS: ATTEND Family Medicine
DX: I27.20 Pulmonary hypertension, unspecified (principal)
CPT/HCPCS: 94060; 94760

== ENCOUNTER 2024-12-10 10:43 | Emergency (ER) | payer OTHER ==
[~2024-12-10] VITALS: Ht 165.1 cm; Wt 106.8 kg
[2024-12-10 10:48] VITALS: TEMP 97.6
--- NOTE | 2024-12-10 12:04 | ELECTROCARDIOGRAPH REPORT ---
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
[2024-12-10] MEDS ORDERED: iohexol 300mg/ml 100ml inj. ONE (12:22)
[2024-12-10 12:26] LABS: MEAN PLATELET VOLUME 8.7 FL (7.4-10.4); RED CELL DISTRIBUTION WIDTH 22.0 % (11.5-14.5)
--- NOTE | 2024-12-10 12:35 | Physician Documentation ---
History of Present Illness ~ Chief Complaint: Facial Swelling Stated Complaint: SWOLLEN CHEEK Time Seen by MD: 11:31 Primary Medical Doctor: NONE Mode of Arrival: POV HPI 58-year-old female presenting with left facial swelling for the past couple of days. Patient states that is this came on gradually and has significantly worsened over the last 24 hours. She denies any trauma. Denies any significant pain but states that it is slightly sore. She denies any fever, chills, sore t hroat or any other associated symptoms. She does have a history of some dental caries and cavities that were filled several years ago but nothing recently. Patient is also being treated via chemotherapy for lymphoma and just recently had her last treatment. No other complaints. Medication Reconciliation Allergies: Coded Allergies: No Known Allergies (Unverified , 12/10/24) Scheduled Allopurinol* (Allopurinol*), 1 TAB PO DAILY, (Reported) Atorvastatin Calcium (Atorvastatin Calcium), 1 TAB PO DAILY, (Reported) Clindamycin HCl (Clindamycin HCl), 1 CAP PO Q8H Hydrochlorothiazide (Hydrochlorothiazide), 1 TAB PO DAILY, (Reported) Levothyroxine Sodium (Levothyroxine), 1 CAP PO DAILY, (Reported) Lisinopril (Lisinopril), 1 TAB PO DAILY, (Reported) Metoprolol Succinate (Metoprolol Succinate), 1 TAB PO DAILY, (Reported) Past Medical History Past Medical History: No Pertinent History, Lymphoma Past Surgical History: orthopedic surgeries Alcohol Use: Occasionally Drug Use: none Lives with: Spouse, S/O Lives In: Home Occupation: employed Physical Exam Vital Signs: Temperature: 97.6, Source: Temporal, Heart Rate: 88, Respiratory Rate: 16, BP: 151/67, Pulse Oximetry: 95, Weight: 106.820 Oxygen Flow Rate: 2.0 Physical Exam I have reviewed the triage vitals. CONST: Well developed and well nourished. In no acute distress HENT: Head Atraumatic Oropharynx: There are several dental caries with cavities that have been filled the left lower posterior molars. There is purulent drainage posterior to the most posterior molar. There is left-sided facial edema present. EYES: Pupils are equal, round and reactive to light. Normal conjunctiva NECK: Normal range of motion. Supple. CARDIO: Normal rate and regular rhythm. No murmurs, rubs, or gallops. S1, S2. PULM/CHEST: No respiratory distress. Lungs clear to auscultation. No wheeze ABD: Soft and nontender. Nondistended. Bowel sounds normal. No guarding. : Exam deferred MSK: No edema. No deformity. NEURO: Alert and oriented to person, place and time. Moving all extremities SKIN: Warm and dry. PSYCH: Normal mood and affect. Good eye contact. Progress Results/Orders Results/Orders Orders - MEGA ALLEN MD Ct Facial Bones/Soft Tissue (12/10/24 14:00) Completed Orders - MEGA ALLEN MD Electrocardiogram (12/10/24 11:51) Cbc/Diff (12/10/24 11:51) Culture Blood (12/10/24 11:51) Hs Troponin I W Calculations (12/10/24 11:51) CMP (12/10/24 11:51) Lacticsepsis (12/10/24 11:51) Procalcitonin (12/10/24 11:51) Ct Facial Bones/Soft Tissue (12/10/24 14:00) Iohexol 300mg/Ml 100ml Inj. (Omnipaque-3 (12/10/24 12:22) Clindamycin 600mg/D5w 50ml (Cleocin 600m (12/10/24 12:30) Man Diff (12/10/24 12:14) Pathology Review (12/10/24 12:14) Normal Saline 500ml Iv Soln (Sodium Chlo (12/10/24 13:25) Potassium Cl Sr Tablet (K-Dur Tablet) (12/10/24 14:41) Laboratory Tests Test 12/10/24 12:06 12/10/24 12:14 Lactic Acid Level 1.2 White Blood Count 22.8 H Red Blood Count 3.75 L Hemoglobin 10.8 L Hematocrit 33.7 L Mean Corpuscular Volume 89.8 Mean Corpuscular Hemoglobin 28.7 Mean Corpuscular Hemoglobin Concent 31.9 L Red Cell Distribution Width 22.0 H Platelet Count 135 L Mean Platelet Volume 8.7 Neutrophils (%) (Auto) 55.6 Lymphocytes (%) (Auto) 7.7 L Monocytes (%) (Auto) 35.9 H Eosinophils (%) (Auto) 0.4 Basophils (%) (Auto) 0.4 Neutrophils # (Auto) 12.7 H Lymphocytes # (Auto) 1.8 Monocytes # (Auto) 8.2 H Eosinophils # (Auto) 0.1 Basophils # (Auto) 0.1 CBC Comment Differential Total Cells Counted 100 Neutrophils % (Manual) 46.0 Lymphocytes % (Manual) 7.0 L Monocytes % (Manual) 44.0 H Metamyelocytes % 3.0 H Platelet Estimate Decreased Red Blood Cell Morphology Perf Hypochromasia Basophilic Stippling Anisocytosis 3+ Stomatocytes 1+ Hematology Pathologist Comment See note Sodium Level 142 Potassium Level 3.1 L Chloride Level 100 Carbon Dioxide Level 34.2 H Anion Gap 8 Blood Urea Nitrogen 10 Creatinine 0.99 H Estimated GFR/1.73 m2 58 BUN/Creatinine Ratio 10.1 Glucose Level 160 H Calcium Level 9.0 Total Bilirubin 0.7 Aspartate Amino Transf (AST/SGOT) 16 Alanine Aminotransferase (ALT/SGPT) 18 Alkaline Phosphatase 101 Troponin I High Sensitivity 5 Total Protein 8.6 H Albumin 3.5 Globulin 5.1 H Albumin/Globulin Ratio 0.7 L Procalcitonin < 0.05 Chemistry Comments Microbiology Date/Time Source Procedure Growth Status 12/10/24 12:14 Blood Arm Right Blood Culture - Final NO GROWTH AFTER 5 DAYS Complete EKG/XRAY/CT/US/VASC/MRI EKG : Additional Comment EKG as interpreted by ED MD indicating normal sinus rhythm with a rate of 89 beats per minute, no ischemia, normal axis CT : Impression CT CT FACIAL BONES/SOFT TISSUE W/ IV CONTRAST Indication: left facial swelling EXAM DATE: 12/10/2024 01:49 PM COMPARISON: None TECHNIQUE: CT of the facial region with intravenous contrast. FINDINGS: Bifrontal encephalomalacia. Orbits, retrobulbar spaces unremarkable. Left facial region, left perimandibular region soft tissue stranding. Haziness/ stranding extending to the Left parapharyngeal fat region. Left mandibular molar tooth periapical lucency/ abscess, image 35 of 75. Enlarged left submandibular lymph nodes measuring up to 10 mm. Enlarged left cervical jugulodigastric lymph node measuring 13 mm. Right cervical jugulodigastric lymph node measuring 13 mm. Mastoids well pneumatized complete opacification left maxillary sinus. Right maxillary sinus mucosal thickening. The mastoids are well pneumatized. IMPRESSION: Left facial region, left perimandibular soft tissue edema and stranding, likely representing cellulitic changes. This could be secondary to left mandibular molar tooth periapical lucency/ abscess, image 35 of 75. Associated left submandibular, cervical jugulodigastric lymphadenopathy. Paranasal sinus disease most pronounced within the left maxillary sinus. Medical Decision Making Additional Comment 58-year-old female presenting with a left dental abscess. This was seen on the CT of the facial bones and soft tissue. The patient this abscess is already draining on his own as I was able to express some pus on my examination. Patient was given 600 mg of IV clindamycin. I will go ahead and start the patient on clindamycin for seven days and advised her to take this medication as prescribed. Patient does have an elevated WBC count of 22 however this is chronic for the patient as she has lymphoma and this is actually down trending compared to previous values. Patient was not in any severe type of pain. Remainder of lab work indicating some mild hypokalemia with a potassium of 3.1. This was replaced with 20 mEq of p.o. potassium in the ED. remainder of lab work is unremarkable. Patient is otherwise stable and safe for discharge home. Patient will be discharged with instructions to follow up with dentistry within the next week. Return to the ED with any acutely worsening symptoms. Departure Disposition: 01 HOME / SELF CARE / HOMELESS Impression: Primary Impression: Dental abscess Additional Impression: Hypokalemia Discharge Instructions: Abscess, Dental Additional Instructions: Please follow up with dentistry in the next week. We are starting you on antibiotics please take the antibiotics as prescribed and complete the full course. You may take ibuprofen or Tylenol as needed for any pain. Please follow up with dentistry for definitive care. Referrals: NO PRIMARY CARE PROVIDER (PCP) Prescriptions Clindamycin HCl (Clindamycin HCl) 300 Mg Capsule 1 CAP PO Q8H for 10 Days, #30 CAP Prov: MEGA ALLEN MD 12/10/24 Signature Scribe Signature: 1 Attestation: 1 MEGA ALLEN MD Dec 10, 2024 12:35
[2024-12-10 12:44] LABS: LYMPHOCYTES % (MANUAL) 7.0 % (21-51); METAMYLEOCYTES% (MANUAL) 3.0 % (0-0); MONOCYTES % (MANUAL) 44.0 % (2-12); NEUTROPHILS % (MANUAL) 46.0 % (42-75)
[2024-12-10 12:45] LABS: PLATELET ESTIMATE DECREASED
[2024-12-10 12:48] LABS: CREATININE 0.99 MG/DL (0.40-0.90); TOTAL CARBON DIOXIDE 34.2 MMOL/L (24-32); eCRCL 56 ML/MIN; eGFR 58 ML/MIN
[2024-12-10] MEDS: normal saline 500ml IV soln 500 ML IV ONE (14:16)
--- NOTE | 2024-12-10 14:25 | RADIOLOGY REPORT ---
CT CT FACIAL BONES/SOFT TISSUE W/ IV CONTRAST Indication: left facial swelling EXAM DATE: 12/10/2024 01:49 PM COMPARISON: None TECHNIQUE: CT of the facial region with intravenous contrast. FINDINGS: Bifrontal encephalomalacia. Orbits, retrobulbar spaces unremarkable. Left facial region, left perimandibular region soft tissue stranding. Haziness/ stranding extending to the Left parapharyngeal fat region. Left mandibular molar tooth periapical lucency/ abscess, image 35 of 75. Enlarged left submandibular lymph nodes measuring up to 10 mm. Enlarged left cervical jugulodigastric lymph node measuring 13 mm. Right cervical jugulodigastric lymph node measuring 13 mm. Mastoids well pneumatized complete opacification left maxillary sinus. Right maxillary sinus mucosal thickening. The mastoids are well pneumatized. IMPRESSION: Left facial region, left perimandibular soft tissue edema and stranding, likely representing cellulitic changes. This could be secondary to left mandibular molar tooth periapical lucency/ abscess, image 35 of 75. Associated left submandibular, cervical jugulodigastric lymphadenopathy. Paranasal sinus disease most pronounced within the left maxillary sinus.
[2024-12-10] MEDS ORDERED: CLIN-197 PO (14:45)
[2024-12-10] MEDS: potassium Cl 20 mEq SR tablet PO STA (14:49)
[2024-12-10 15:10] VITALS: BP 162/79; PULSE 74; RESP 16; O2SAT 95
== END 2024-12-10 15:12 | disposition home or self-care (01) ==
LOC: ER 10:44
DX: K04.7 Periapical abscess without sinus (principal); E87.6 Hypokalemia; Z79.899 Other long term (current) drug therapy; Z72.89 Other problems related to lifestyle
CPT/HCPCS: 36415; 70487; 80053; 83605; 84145; 84484; 85007; 85025; 87040; 93005; 96361; 96365; 99285; J3490; J7040; Q9967; 96374; A4421